=== PATIENT | male | born 1970 | race Caucasian/White ===

== ENCOUNTER 2016-08-26 08:15 | Outpatient (CLI) | payer MEDICAID | END 2016-08-26 08:45 | disposition home or self-care (01) | DX: I51.7 Cardiomegaly (principal) ==

== ENCOUNTER 2016-08-26 08:48 | Outpatient (CLI) | payer MEDICAID | END 2016-08-26 08:49 | disposition home or self-care (01) | DX: R06.2 Wheezing (principal) ==

== ENCOUNTER 2016-08-26 09:17 | Outpatient (CLI) | payer MEDICAID | END 2016-08-26 09:18 | disposition home or self-care (01) | DX: G45.9 Transient cerebral ischemic attack, unspecified (principal); E03.9 Hypothyroidism, unspecified; I10 Essential (primary) hypertension ==

== ENCOUNTER 2016-09-07 10:33 | Outpatient (CLI) | payer MEDICAID | END 2016-09-07 10:34 | disposition home or self-care (01) | DX: I51.7 Cardiomegaly (principal); I10 Essential (primary) hypertension; Z87.891 Personal history of nicotine dependence ==